=== PATIENT | male | born 1975 | race Caucasian/White ===

== ENCOUNTER 2018-05-19 19:31 | Emergency (ER) | payer BC, OTHER ==
[~2018-05-19] VITALS: Wt 113.4 kg
[~2018-05-19 19:31] MED LIST: GLUCOPHAGE1000 MG PO; ROXICET 325 MG240 ML PO
[2018-05-19] MEDS ORDERED: TRULICITY1.5 MG/0.5 SC (19:34)
[2018-05-19] MEDS ORDERED: ROSUVASTATIN CA10 MG PO (19:35)
[2018-05-19] MEDS ORDERED: CLINDAMYCIN150 MG PO (19:50)
[2018-05-19] MEDS ORDERED: NAPROSYN500 MG PO (19:51)
== END 2018-05-19 20:29 | disposition home or self-care (01) ==
LOC: ED 19:31
DX: K02.9 Dental caries, unspecified (principal); K06.9 Disorder of gingiva and edentulous alveolar ridge, unspecified

== ENCOUNTER → 2024-09-01 | Outpatient (CLI) | payer OTHER ==
[~2024-09-01] MED LIST changes: +CLINDAMYCIN150 MG PO; +NAPROSYN500 MG PO; +ROSUVASTATIN CA10 MG PO; +TRULICITY1.5 MG/0.5 SC
== END | disposition home or self-care (01) ==
LOC: RAD 16:11
PROVIDERS: ATTEND Nurse Practitioner Family
DX: R06.2 Wheezing (principal)